=== PATIENT | male | born 1945 | race Caucasian/White ===

== ENCOUNTER 2017-01-28 15:11 | Inpatient (IN) | payer MEDICARE ==
[~2017-01-28] VITALS: Ht 186.7 cm; Wt 101.4 kg
[2017-01-28] VITALS (7 sets, daily range): BP systolic 103–153; BP diastolic 45–102; PULSE 70–125; RESP 16–21; O2SAT 95–100
[~2017-01-28 15:11] MED LIST: ASPI325T32 PO; FISH1CAP3 PO; INSU100I13 SUBQ; LISI2.5T PO; METF1000 PO; SIMV5TAB7 PO
--- NOTE | 2017-01-28 15:45 | ED.REPORT ---
HPI-General Illness Date of Service Jan 28, 2017 ED Provider: Steven Pham MD The pt is a 72 y/o male with a hx of HTN and type II DM who presents to the ED complaining of worsening swelling at the bottom of his right foot post an abscess drainage at [facility] urgent care 2 days ago. 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 Associated sx include right foot erythema and mild chills. He reports 5/10 non-radiating sharp pain in his right foot only when he walks. He denies change in sensation in the right foot, fever , chest pain, palpitations, nausea, abdominal pain, constipation, hematuria, and hematochezia. Nursing Notes Stated Complaint: RT FOOT PAIN POST SURGERY Chief Complaint: Extremity Trauma Nursing Notes Reviewed: Yes Allergies: Coded Allergies: No Known Allergies (Unverified , 01/28/17) Scheduled Aspirin (Aspirin) 325 Mg Tablet.dr 325 MG PO DAILY Fish Oil/Vit E/Fat No.5/Hc137 (Flax, Fish & Borage Oil Sofgel) 1 Each Capsule 1 EACH PO DAILY Insulin Glargine (Lantus U100 Solostar Insulin Pen) 100 Unit/1 Ml Insuln.pen 15 UNIT SUBQ QPM-INSULIN Lisinopril (Lisinopril) 2.5 Mg Tablet 2.5 MG PO DAILY Metformin (Glucophage) 1,000 Mg Tablet 1,000 MG PO BIDWM Simvastatin (Simvastatin) 5 Mg Tablet 5 MG PO HS General Time Seen by MD: 15:36 Chief Complaint Other (right foot swelling) Hx Obtained From: Patient Arrived By: Walk-in Sudden in Onset?: Yes Onset Occurred: 2 days ago Symptom Duration: Since onset Location: : Foot right Quality: Painful Radiation: : Does not radiate Severity: Current: No pain currently Severity: Maximum: Pain level 5 out of 10 Recent Healthcare: Recent doctor visit Similar Sx Previous: No Past Medical History Past Medical History Type II DM HTN Past Surgical History Hernia repair Left ring finger and 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 Smoking History Never Smoker Social History Alcohol Use: Denies alcohol use Drug Use: Denies drug use Ambulatory Status Independent Review of Systems Reports: right foot erythema Denies: change in sensation in the right foot Full Review of Systems Constitutional: Reports: Chills (mild), Denies: Fever Cardiovascular: Denies: Chest pain GI: Denies: Abdominal pain, Constipation, Hematochezia, Nausea, Vomiting Male: Denies Hematuria Musculoskeletal: Reports: Extremity pain (right foot pain), Extremity swelling (right foot) Complete sys rev & neg: except as marked. Physical Exam Nursing note and vitals reviewed. Constitutional: Well-developed, well-nourished. Not diaphoretic. Head: Normocephalic and atraumatic. Mouth/Throat: Oropharynx is clear and moist. No oropharyngeal exudate. Eyes: EOM are normal. Pupils are equal, round, and reactive to light. Neck: Supple, no tracheal deviation. Cardiovascular: Tachycardic, irregular rhythm. Equal and intact distal pulses throughout. Pulmonary/Chest: Effort normal and breath sounds normal. No respiratory distress. Abdominal: Soft. No distension. There is no tenderness, rebound, or guarding. Bowel sounds present. Musculoskeletal: Range of motion grossly intact, moving all extremities. Neurological: AOx3. Grossly nonfocal exam. Strength and sensation intact and equal to bilateral upper and lower extremities. Skin: Warm and dry, no rashes or pallor appreciated. Psychiatric: Appropriate mood and affect. Behavior appears normal. Lower extremities:5mm healing, minimally tender lesion in the middle and bottom of the right foot, with surrounding erythema going up to his toes and spreading medially up to his ankles. He has left 4th toe amputation. Upper extremities: Left ring finger amputation Vital Signs Vital Signs Date Time Temp Pulse Resp B/P Pulse Ox O2 Delivery O2 Flow Rate FiO2 01/28/17 18:29 70 18 131/74 99 Room Air 01/28/17 17:53 117 16 149/102 97 Room Air 01/28/17 15:14 36.7 125 16 153/80 98 Room Air Initial VS: Reviewed Interpretation & Diagnostics Lab Results Interpretation Result Diagram: 01/28/17 1600 01/28/17 1600 Test 01/28/17 15:30 01/28/17 16:00 Hold Purple Top Tube Received (Received) Hold Blue Top Tube Received (Received) Hold Benkelman Top Tube Received (Received) Hold Rodgers Top Tube Received (Received) White Blood Count 11.4th/mm3 (3.8-10.1) Red Blood Count 5.22mil/mm3 (4.40-5.80) Hemoglobin 16.2g/dL (13.8-17.2) Hematocrit 46.3% (41.0-50.0) Mean Corpuscular Volume 88.7fL (81-100) Mean Corpuscular Hemoglobin 31.0pg (27.0-35.0) Mean Corpuscular Hemoglobin Concent 35.0% (32.0-37.0) Red Cell Distribution Width 12.3% (12.3-15.4) Platelet Count 162bil/L (150-400) Neutrophils (%) (Auto) 77.4% (40-74) Lymphocytes (%) (Auto) 11.2% (14-46) Monocytes (%) (Auto) 7.8% (4-12) Eosinophils (%) (Auto) 2.8% (0-5) Basophils (%) (Auto) 0.4% (0-3) Erythrocyte Sedimentation Rate 20mm/hr (0-30) Sodium Level 133mEq/L (134-144) Potassium Level 4.3mEq/L (3.5-5.2) Chloride Level 95mEq/L (97-108) Carbon Dioxide Level 21mmol/L (18-29) Blood Urea Nitrogen 18mg/dL (8-27) Creatinine 0.72mg/dL (0.76-1.27) Estimat Glomerular Filtration Rate 114mL/min (>59) Glucose Level 252mg/dL (60-99) Lactic Acid Level 2.2mmol/L (0.4-2.0) Calcium Level 9.2mg/dL (8.5-10.1) Total Bilirubin 1.0mg/dL (0.0-1.2) Aspartate Amino Transf (AST/SGOT) 16U/L (0-50) Alanine Aminotransferase (ALT/SGPT) 11U/L (0-44) Alkaline Phosphatase 96U/L (25-160) Troponin T < 0.010ug/L (0.0-0.011) C-Reactive Protein 2.9mg/dL (0.0-0.5) Total Protein 7.5g/dL (6.4-8.4) Albumin 4.0g/dL (3.4-5.0) Triglycerides Level 192mg/dL (0-149) Cholesterol Level 173mg/dL (100-199) LDL Cholesterol, Calculated 99.600mg/dL (0-99) VLDL Cholesterol 38.400mg/dL HDL Cholesterol 35mg/dL (>39) Cholesterol/HDL Ratio 4.94 (0.0-4.4) Procalcitonin 0.04ng/mL (0.00-0.08) ECG Interpretation ECG Interpretation: A-fib. Rate 132. Left anterior fascicular block. Age indeterminate anteroseptal infarct. Time: 15:36 Interpreted by: ED physician X-Ray Chest Interpretation Chest Xray Interpretation: IMPRESSION: Minimal subsegmental atelectasis at the left base. Otherwise no abnormality is seen in the semiupright portable chest Dictated by: Casimiro Horne M.D. on 01/28/2017 at 18:37 Approved by: Casimiro Horne M.D. on 01/28/2017 at 18:38 View: Portable, 1 view Interpretation / Wet Read by: Interpret - Radiologist Re-Eval/Medical Decision Med Decision/Clinical Course In summary, 72-year-old male presenting to the ED for evaluation after he noticed worsening redness and pain to his foot after an I&D several days ago. The swelling appears to be getting worse and the patient does have some chills, however afebrile. He states that he was told that there was some concern for MRSA; he was started on vancomycin here in the emergency department. White blood cell count of 11.4 with 77.4% neutrophils. Lactic acid of 2.2. Glucose 252. Troponin negative. Of note, upon arrival, patient noted to be in atrial fibrillation with rapid ventricular rate. He is not endorsing any palpitations or chest pain. He denies having a history of this in the past. Unclear when this may have started. Chest x-ray negative for any acute abnormalities that would account for his symptoms. Blood cultures drawn the emergency department prior to antibiotic administration. Troponin negative. Initially given several doses of metoprolol IV with improvement, however would then return to A. fib with RVR. Started on a diltiazem drip here in the emergency department. Plan admission for further management and evaluation. Patient agreeable with plan as stated, no further questions. Source of Hx: Old records Time of Eval: 17:39 Re-Evaluation/Progress Note: Discussed diagnosis, ECG, lab results and plan to admit. The pt understands and agrees with the plan. All questions answered. Consultation : Referral / Consult Name: Dahlia Peraza Consulted With: Hospitalist Call Returned at: 19:14 Public Health Director: Will see patient, Agrees with eval, Agrees with plan, Accepts admit Counseled Regarding: Diagnosis, Lab results, Need for admission Discharge & Departure Primary Impression: Atrial fibrillation with RVR Additional Impression: Cellulitis Site of cellulitis: extremity Site of cellulitis of extremity: lower extremity Laterality: unspecified laterality Qualified Code: L03.119 - Cellulitis of unspecified part of limb Disposition: Home Discharge Condition All VS Reviewed: Yes Referrals: Rajiv Law MD (PCP) Crit Care Except Billable Proc Time Spent: 30-74 minutes Services Performed: Patient management by me, Time spent at bedside, Reviewing test results, Reviewing imaging, Discussing patient care, Documentation in record Critical Care Notes: Please see MDM. Sanaibe Attestation Portions of this note were transcribed by Abraham Ellsworth. I,, personally performed the history, physical exam and medical decision-making;I reviewed and confirmed the accuracy of the information in the transcribed note. Signed by Tameka Roberts. 01/28/17 copies to: Rajiv Law MD, William B MD Jan 28, 2017 15:45 Abraham Ellsworth Jan 28, 2017 15:49
[2017-01-28 16:19] LABS: BASOPHILS % (AUTO) 0.4 % (0-3); EOSINOPHILS % (AUTO) 2.8 % (0-5); MONOCYTES % (AUTO) 7.8 % (4-12); Mean Corpuscular Volume 88.7 fL (81-100); NEUTROPHILS % (AUTO) 77.4 % (40-74); Platelet Count 162 bil/L (150-400)
[2017-01-28] MEDS ORDERED: 0.9% Sodium Chloride 1,000 ML IV ONE (17:42)
[2017-01-28] MEDS ORDERED: MeTOProlol 1 mg/mL 5 mL Inj IVPUSH ONE (17:45)
--- NOTE | 2017-01-28 18:40 | DRSVH ---
PROCEDURE: X-RAY CHEST ONE VIEW ([id number]) INDICATIONS: tachycardic TECHNIQUE: One view of the chest was acquired. COMPARISON: [facility], CR, CHEST 2VW, 05/29/2009, 10:11. FINDINGS: Surgical changes and devices: cake tester leads are seen over the chest. Lungs and pleura: No pleural effusions or pneumothorax. Lungs are clear other than some minimal sub segmental atelectasis at the left base. Mediastinum: Mediastinal contours appear normal. Heart size is normal. Bones and chest wall: No suspicious bony lesions. Overlying soft tissues appear unremarkable. IMPRESSION: Minimal subsegmental atelectasis at the left base. Otherwise no abnormality is seen in th e semiupright portable chest Dictated by: Casimiro Horne M.D. on 01/28/2017 at 18:37 Approved by: Casimiro Horne M.D. on 01/28/2017 at 18:38
[2017-01-28] MEDS ORDERED: Vancomycin Dose per Pharmacist XX SCH (18:45)
[2017-01-28] MEDS ORDERED: Diltiazem HCl 125 MG in 0.9% Sodium Chloride 100 ML, Pharmacy To Mix 1 EA IV SCH (18:45)
[2017-01-28] MEDS ORDERED: Vancomycin Inj 2,000 MG in 0.9% Sodium Chloride 500 ML IV ONE (18:55)
[2017-01-28] MEDS ORDERED: Polyethylene Glycol (PEG) 17 Gm Powder PO PRN (19:55)
[2017-01-28] MEDS ORDERED: Ondansetron 2 mg/mL 2 mL Inj IVPUSH PRN (19:55)
[2017-01-28] MEDS ORDERED: Alum-Mag Hydrox-Simeth 30 mL Suspension PO PRN (19:55)
--- NOTE | 2017-01-28 21:41 | PCM.HPMED ---
Subjective Date of Service Jan 28, 2017 Primary Provider: Admitting Physician: Dahlia Peraza DO Primary Care Physician: Rajiv Law MD Attending Physician: Dahlia Peraza DO Chief Complaint: right foot swelling History of Present Illness: Mr. Ramses Guzman is a very pleasant 72 year old gentleman with past medical history of hypertension, poorly controlled insulin using diabetes, who presents to ED complaining of worsening swelling at the bottom of his right foot post an abscess drainage at [facility] urgent care on Sunday. Culture was taken and placed on Keflex since then. He first noticed the surrounding redness on the medial aspect of his foot and upon closer examination then noticed the blister. He states that it started like a pimple with a white head and a black center and a 7cm surrounding area of erythema. He states that it is only painful directly over the incision. He reports 5/10 non-radiating sharp pain in his right foot only when he walks. In the ED the patient was noted to be in afib w RvR. He denies headache, nausea, vomiting, syncope, fever, chills, diaphoresis, chest pain, palpitations, abdominal pain, constipation, diarrhea, hematuria, and hematochezia. Of note: Patient drinks 6 cups of coffee daily. Review of Systems: A comprehensive review of systems was conducted with the patient and found to be negative except as above in the History of Present Illness. Allergies Coded Allergies: No Known Allergies (Unverified , 01/28/17) Home Medications Aspirin (Aspirin) 325 Mg Tablet.dr 325 MG PO DAILY Fish Oil/Vit E/Fat No.5/Hc137 (Flax, Fish & Borage Oil Sofgel) 1 Each Capsule 1 EACH PO DAILY Insulin Glargine (Lantus U100 Solostar Insulin Pen) 100 Unit/1 Ml Insuln.pen 15 UNIT SUBQ QPM-INSULIN Lisinopril (Lisinopril) 2.5 Mg Tablet 2.5 MG PO DAILY Metformin (Glucophage) 1,000 Mg Tablet 1,000 MG PO BIDWM Simvastatin (Simvastatin) 5 Mg Tablet 5 MG PO HS PMH Type II DM HTN Surgical History Hernia repair Left ring finger and 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 Social History Hx Alcohol Use: No Smoking Status: Never Smoker Exam Vital Signs Vital Sign - Last Date Time Temp Pulse Resp B/P Pulse Ox O2 Delivery O2 Flow Rate FiO2 01/28/17 19:45 96 20 103/57 95 Room Air 01/28/17 15:14 36.7 Exam General: No acute distress, well-developed, well-nourished, appropriately interactive HEENT: Normocephalic, atraumatic. External ears without defect. Pupils equal, round, and reactive to light and accommodation. Anicteric sclerae, moist conjunctivae, and no lid lag. Oropharynx free of erythema and cobble stoning with moist mucosa. Neck: Supple with full range of motion. No jugular venous distension. No bruits. No lymphadenopathy or thyromegaly. Cardiovascular: Regular rate and rhythm with no murmurs, rubs, or gallops appreciated Pulmonary: Clear to auscultation bilaterally with no crackles, wheezes, or rhonchi. Normal respiratory effort with no use of accessory muscles. Abdomen: Bowel tones present. Soft, nontender, nondistended. No hepatosplenomegaly or masses appreciated. Extremities: No clubbing, cyanosis, edema, or lymphadenopathy appreciated. pulses palpable but soft bilaterally. Lower extremities:5mm healing, minimally tender lesion in the middle and bottom of the right foot, with surrounding erythema going up to his toes and spreading medially up to his ankles. He has left 4th toe amputation. Upper extremities: Left ring finger amputation Skin: Normal temperature, turgor, and texture; no rash, ulcers, or subcutaneous nodules appreciated. Neurological: Cranial nerves grossly intact. Normal muscle strength, tone, and bulk. Reflexes, coordination, and sensory function within normal limits. No known gait impairment. Psychiatric: Normal mood and affect. Alert and oriented to person, place, and time. Lymph: no cervical or supraclavicular lymphadenopathy MSK: as above regarding lower extremities otherwise no joint erythema / edema Lab and Diagnostics Result Diagram: 01/28/17 1600 01/28/17 1600 Assessment & Plan Mr. Ramses Guzman is a very pleasant 72 year old gentleman with past medical history of hypertension, poorly controlled insulin using diabetes, and new onset Afib w/ RvR who is currently being treated for MSSA diabetic foot infection. MSSA diabetic foot infection, present on admission. Active. - MSSA cx positive in outpatient records. - Vancomycin received in the ED and D/C'd on floor. - Nafcillin started. - Blood cx pending. - Procalcitonin/esr/crp pending. - Day team to contact Dr. Lazcano with podiatry. - May consider MRI tomorrow. Afib with RvR, present on admission. Resolved. - Afib converted to sinus shortly arriving to the floor. - New diagnosis. Patient drinks 6 cups of coffee daily. - Diltiazem ggt. - Tele on. - [id number] score of 4,= moderate risk. Continue patients ASA. - Day team to determine best choice of oral medication for anticoagulation. Insulin using diabetes, present on admission. Active. - Continue home regimen. Patient has Lantus on med rec, but he says he uses something else... - Holding home oral medications - Metformin 1G BIDWM. - A1c pending. - SSI, medium correctional Hypertension, - Continue home lisinopril 2.5 daily. Hyperlipidemia - Continue home simvastatin 5mg daily. - Lipid panel pending. Acetaminophen for mild pain when necessary. Bowel regimen Senna and MiraLAX scheduled and PRN. Zofran when necessary for nausea and vomiting. SubQ heparin for now. SCDs in place. High-risk medications: IV Vancomycin. Only one dose given in ED Drips: Diltiazem ggt. Patient Status: Patient is admitted under inpatient status with expected length of stay greater than 2 midnights due to severity of presenting symptoms, risk of adverse event, and complexity of treatment plan. Pain Evaluation: Adequate Pain Control Resuscitation Status: CPR: Attempt Resuscitation Attending Statement The patient was seen and examined together with house staff on 01/28/2017 and I agree with the history, exam and plan as outlined in the note above. YOANDY RAMIRES DO Jan 28, 2017 19:49 Dahlia Peraza DO Jan 28, 2017 23:47
[2017-01-28] MEDS ORDERED: Glucose 40% Oral Gel 15 Gm Tube PO PRN (23:55)
[2017-01-29] VITALS (8 sets, daily range): BP systolic 116–178; BP diastolic 59–74; PULSE 69–87; RESP 14–22; O2SAT 94–97
[2017-01-29] MEDS: Heparin 5,000 Unit/mL Inj SUBQ SCH ×3 (00:30→16:02)
[2017-01-29] MEDS: Insulin GLARgine 100 Unit/mL Syringe SUBQ SCH ×2 (01:39→21:52)
[2017-01-29] MEDS: Nafcillin Inj 2,000 MG in Dextrose 5% Minibag Plus 100 ML IV SCH ×4 (02:42→21:39)
--- NOTE | 2017-01-29 04:54 | NUR ---
NEW ADMIT Pt to the floor around 2024. Pt indep. in room, dilt gtt @ 5 ml/hr, A-fib converted to SR 70's shortly after arriving. Pt jumped back into A-fib around 229 then back into SR around 334. Pt slept well, VSS, no other complaints at this time.
[2017-01-29] MEDS: Insulin LISPRO 300 Unit/3 mL Inj SUBQ SCH ×4 (08:31→22:00)
--- NOTE | 2017-01-29 11:53 | NUR ---
Social Work: Initial Assessment/Multidisciplinary Rounds D: Per EMR review, pt is a 72 year old male admitted for AFIB with RVR. Pt is [facility] with Medicare; pt has no LTC or VA benefits. PCP is Rajiv Law MD. NOK Is Leonie Rosado, , . Advanced directives completed- FUNERAL ARRANGER requested copy for chart. RA score not entered at this time. Pt discussed in am rounds. Pt capacity for self-care and d/c needs discussed. No concerns or needs identified at this time. Pt is I with self care and ambulating. FUNERAL ARRANGER met with the patient at bedside. Sw role explained, contact info and d/c planning checklist provided. Pt lives in [place] with his in a two story home with 1 step to enter. Pt uses no DME, continues to drive and engage in recreational activities (fishing) and is I with all his own self care. Pt has never required home health or prison/rehab. Pt anticipates discharge home once medically stable; pt's is out of town. Pt's sister and [id number] will transport. A: Pt who is I at baseline. P: Anticipate discharge home via POV once medically stable; FUNERAL ARRANGER to continue to follow to assess for d/c needs. KENNY Phelan Addendum: 01/29/17 at 1157 by OSCAR BOLIVAR Amended: Links added.
[2017-01-29 12:14] LABS: BASOPHILS % (AUTO) 0.2 % (0-3); EOSINOPHILS % (AUTO) 3.7 % (0-5); MONOCYTES % (AUTO) 8.2 % (4-12); Mean Corpuscular Hemoglobin 31.2 pg (27.0-35.0); NEUTROPHILS % (AUTO) 73.6 % (40-74); Platelet Count 148 bil/L (150-400)
[2017-01-29] MEDS ORDERED: Ketorolac 15 mg/mL Inj IVPUSH ONE (13:55)
--- NOTE | 2017-01-29 15:48 | DRSVH ---
[facility] [address] [place] [address] Echocardiogram Report Name: UMAIR GARNETT EStudy Date: 01/29/2017 Height: 74 in Hospital Exam Location: [facility] Weight: 220 lb Gender: Male BSA: 2.3 m2 : 1945 Age: 72 yrs BP: 116/59 mmHg Reason For Study: Atrial fibrillation Ordering Physician: Performed By: Michelle Nick Referring Physician: Melissa Law Interpretation Summary 1) Normal left ventricular thickness, size, and systolic function (EF 60- 65%). 2) No obvious focal wall motion abnormalities noted but poor endocardial definition reduces the sensitivity for the detection of such. 3) Normal right ventricular size and function. 4) Age related sclerocalcification of the aortic and mitral valve but no significant stenosis or regurgitation present. 5) No prior Echo available for comparison. Procedure: A two-dimensional transthoracic echocardiogram with color flow and Doppler was performed. The study quality was technically adequate. There is no prior echocardiogram noted for this patient. The patient was in sinus rhythm during the exam. Left Ventricle: The left ventricle is normal in size. There is normal left ventricular wall thickness. The ejection fraction is estimated to be 60-65%. Left ventricular systolic function is normal. There are no obvious focal wall motion abnormalities noted but poor endocardial definition reduces the sensitivity for the detection of such. Assessment of diastolic parameters indicates a relaxation abnormality of the left ventricle, consistent with normal filling pressures. Right Ventricle: The right ventricle is normal in size and function. Atria: The left atrium is moderately dilated. Right atrial size is normal. The interatrial septum is intact with no evidence for an atrial septal defect. Mitral Valve: The mitral valve leaflets appear mildly thickened, but open well. The mitral valve leaflets are mildly calcified. There is trace mitral regurgitation. Aortic Valve: The aortic valve opens well. There is mild aortic valve sclerosis. The aortic valve is trileaflet. There is no aortic valve stenosis. No aortic regurgitation is present. Tricuspid Valve: The tricuspid valve is normal in structure and function. No tricuspid regurgitation. Pulmonic Valve: The pulmonic valve is normal in structure and function. There is no pulmonic valvular regurgitation. Great Vessels: The aortic root is normal size. The dimensions of the ascending aorta are normal. The IVC is of normal diameter and collapses greater than 50% with a sniff. This suggests a low right atrial pressure of 3 mm Hg. Pericardium/ Pleura There is no pericardial effusion. There is no pleural effusion. MMode/2D Measurements & Calculations LVIDd: 5.3 cm LA dimension: 4.6 cm RA long axis Ao root diam LVIDs: 3.2 cm FS: 38.7 % LA A2 area: 27.5 cm RA area Aortic Jxn: 2.9 cm IVSd: 0.94 cm LA A4 area: 30.4 cm asc Aorta Diam LVPWd: 0.86 cm LA length (vol) : 19.2 cm RA vol Ao Arch Diam (Prox LA vol: 105.7 ml : 61.7 ml Trans): 3.3 cm LA vol index RA : 27.3 mm/ RVDd major IVC diam: 2.1 cm : 5.2 cm LV ren. diameter/BSA LV sys. diameter/BSA RVD1 (basal) RVD2 (mid): 3.3 cm (cm/m^2): 2.3 (cm/m^2): 1.4 Doppler Measurements & Calculations LVOT Max Neno MV E max neno MV E/A: 1.1 PA V2 max : 136.9 cm/sec : 74.4 cm/sec Med Peak E' Neno : 101.5 cm/sec MV A max neno PA mean PG : 68.2 cm/sec E/E' med: 11.0 MV P1/2t: 71.0 msec Lat Peak E' Neno PA Accel Time : 0.14 sec E/E' lat: 8.5 E/e' average: 9.8 MV A dur: 0.11 sec MV dec time MV P1/2t max neno LV V1 max PG PA V2 mean : 0.24 sec : 66.7 cm/sec MVA(P1/2t): 3.1 cm2 LV V1 VTI: 28.5 cm Reading Physician:03:47 PM
--- NOTE | 2017-01-29 16:15 | PCM.PNMED ---
Subjective Date of Service Jan 29, 2017 Subjective Overnight the patient is doing well. He remains afebrile but continues to have minor pain in his foot. Dr. Lazcano to assess today. Exam Vital Signs Vital Sign - Last Date Time Temp Pulse Resp B/P Pulse Ox O2 Delivery O2 Flow Rate FiO2 01/29/17 12:13 36.1 71 16 140/71 95 Room Air Intake and Output 01/28/17 01/28/17 01/29/17 Cumulative From/Thru 15:00 23:00 07:00 01/28/17 15:14 - 01/29/17 05:44 Intake Total 1000 ml 420 ml 1420 ml Balance 1000 ml 420 ml 1420 ml IV Total 1000 ml 420 ml 1420 ml Exam General: Pleasant appearing age-appropriate male in no acute distress HEENT: PERRLA, EOMI, nonicteric, membranes moist Lymph: No lymphadenopathy Cardio: Irregular without murmur Respiratory: CTA bilaterally, no wheezes, no crackles Abdomen: Soft, positive bowel sounds, nontender, nondistended Extremities: No edema, 5/5 strength, sensation intact; patient has a noticeable deep red cellulitis on the plantar surface of his foot with expansion toward the medial malleolus Psych: Appropriate mood and affect Neuro: CN II through XII grossly intact, sensation intact throughout Skin: No rash IVs and Medications Medications Reviewed: Medications were reviewed in detail Lab and Diagnostics Result Diagram: 01/29/17 1200 01/29/17 1200 X-Rays, CTs and MRIs Chest x-ray Minimal subsegmental atelectasis at the left base. Otherwise no abnormality is seen in the semiupright portable chest Dictated by: Casimiro Horne M.D. on 01/28/2017 at 18:37 Assessment & Plan Mr. Ramses Guzman is a very pleasant 72 year old gentleman with past medical history of hypertension, poorly controlled insulin using diabetes, and new onset Afib w/ RvR who is currently being treated for MSSA diabetic foot infection. MSSA diabetic foot infection, present on admission. Active. - MSSA cx positive in outpatient records. - Vancomycin received in the ED and D/C'd on floor. - Continue nafcillin day 2 - Blood cx pending; day 2 - Procalcitonin negative, C-reactive protein 2.9 - Dr. Lazcano evaluated and reevaluate this evening - Patient reports Dr. Lazcano feels this needs a deeper debridement - MRI ordered Afib with RvR, present on admission. Resolved. - Afib converted to sinus shortly arriving to the floor. - New diagnosis. Patient drinks 6 cups of coffee daily. - Diltiazem ggt converted to 180mg PO daily - Tele on. - [id number] score of 4 - Anticoag with Eliquis - Day team to determine best choice of oral medication for anticoagulation. Insulin using diabetes, present on admission. Active. - Continue home regimen. Patient has Lantus on med rec, but he says he uses something else... - Holding home oral medications - Metformin 1G BIDWM. - A1c pending. - Lantus 15 units at bedtime - Medium correctional Hypertension, - Continue home lisinopril 2.5 daily. Hyperlipidemia - Continue home simvastatin 5mg daily. Disposition: Patient likely to be discharged tomorrow pending the results of the MRI and the ongoing debridement. Pain Evaluation: Adequate Pain Control VTE Prophylaxis: Sub-Q Heparin (Unfractionated) Resuscitation Status: CPR: Attempt Resuscitation Attending Statement The patient was seen and examined together with Dr. Dr. Greenberg on January 29 and I agree with the history, exam findings, and plan as outlined in the note above. I did participate in all aspects of the services provided today, including documentation and the plan of care. We will continue IV antibiotics and debridement for another day. Emanuel Greenberg DO Jan 29, 2017 16:15 Lamberto Contreras MD Jan 30, 2017 14:17
[2017-01-29] MEDS: Diltiazem CD 180 mg ER24 Capsule PO SCH (17:52)
--- NOTE | 2017-01-29 18:01 | PCM.CHPPOD ---
Subjective Date of service Jan 29, 2017 History of Present Illness 72 year old male evaluated resting comfortably in Bed in no Acute distress. Patient states that he noticed some redness on his plantar foot this past Sunday. He contacted the office and was directed toward the Urgent care center. He was evaluated at urgent care and placed on oral antibiotic therapy. Patient states that the erythema conintued to spreda so he was directed to the ER yesterday and was admitted to [facility]. Upon admission he was given a dose of IV vancomycin. patient denies any recent fever, chills, nausea or vomiting. Allergy Allergies: Coded Allergies: No Known Allergies (Unverified , 01/28/17) Medications Aspirin (Aspirin) 325 Mg Tablet.dr 325 MG PO DAILY Fish Oil/Vit E/Fat No.5/Hc137 (Flax, Fish & Borage Oil Sofgel) 1 Each Capsule 1 EACH PO DAILY Insulin Glargine (Lantus U100 Solostar Insulin Pen) 100 Unit/1 Ml Insuln.pen 15 UNIT SUBQ QPM-INSULIN Lisinopril (Lisinopril) 2.5 Mg Tablet 2.5 MG PO DAILY Metformin (Glucophage) 1,000 Mg Tablet 1,000 MG PO BIDWM Simvastatin (Simvastatin) 5 Mg Tablet 5 MG PO HS Past Medical History Surgeries: Yes (HERNIA REPAIR) Medical History: Surgical History: Social History Hx Alcohol Use: No Hx Substance Use: No Smoking Status: Never Smoker Podiatry Consult Exam Vital Signs Vital Sign - Last Date Time Temp Pulse Resp B/P Pulse Ox O2 Delivery O2 Flow Rate FiO2 01/29/17 16:28 37.1 75 22 151/69 95 Room Air Intake and Output 01/28/17 01/28/17 01/29/17 Cumulative From/Thru 15:00 23:00 07:00 01/28/17 15:14 - 01/29/17 05:44 Intake Total 1000 ml 420 ml 1420 ml Balance 1000 ml 420 ml 1420 ml IV Total 1000 ml 420 ml 1420 ml Result Diagram: 01/29/17 1200 01/29/17 1200 Lab Test 01/28/17 15:30 01/28/17 16:00 01/28/17 21:05 01/28/17 21:08 Hold Purple Top Tube Received (Received) Hold Blue Top Tube Received (Received) Hold [place] Top Tube Received (Received) Hold Rodgers Top Tube Received (Received) Erythrocyte Sedimentation Rate 20mm/hr (0-30) Troponin T < 0.010ug/L (0.0-0.011) C-Reactive Protein 2.9mg/dL (0.0-0.5) Triglycerides Level 192mg/dL (0-149) Cholesterol Level 173mg/dL (100-199) LDL Cholesterol, Calculated 99.600mg/dL (0-99) VLDL Cholesterol 38.400mg/dL HDL Cholesterol 35mg/dL (>39) Cholesterol/HDL Ratio 4.94 (0.0-4.4) Procalcitonin 0.04ng/mL (0.00-0.08) Hold Urine Received (Received) Test 01/29/17 12:00 White Blood Count 8.1th/mm3 (3.8-10.1) Red Blood Count 4.62mil/mm3 (4.40-5.80) Hemoglobin 14.4g/dL (13.8-17.2) Hematocrit 41.6% (41.0-50.0) Mean Corpuscular Volume 90.0fL (81-100) Mean Corpuscular Hemoglobin 31.2pg (27.0-35.0) Mean Corpuscular Hemoglobin Concent 34.6% (32.0-37.0) Red Cell Distribution Width 12.5% (12.3-15.4) Platelet Count 148bil/L (150-400) Neutrophils (%) (Auto) 73.6% (40-74) Lymphocytes (%) (Auto) 13.9% (14-46) Monocytes (%) (Auto) 8.2% (4-12) Eosinophils (%) (Auto) 3.7% (0-5) Basophils (%) (Auto) 0.2% (0-3) Sodium Level 140mEq/L (134-144) Potassium Level 4.1mEq/L (3.5-5.2) Chloride Level 101mEq/L (97-108) Carbon Dioxide Level 24mmol/L (18-29) Blood Urea Nitrogen 11mg/dL (8-27) Creatinine 0.64mg/dL (0.76-1.27) Estimat Glomerular Filtration Rate 130mL/min (>59) Glucose Level 158mg/dL (60-99) Lactic Acid Level 1.2mmol/L (0.4-2.0) Calcium Level 8.7mg/dL (8.5-10.1) Total Bilirubin 1.1mg/dL (0.0-1.2) Aspartate Amino Transf (AST/SGOT) 10U/L (0-50) Alanine Aminotransferase (ALT/SGPT) 10U/L (0-44) Alkaline Phosphatase 76U/L (25-160) Total Protein 6.3g/dL (6.4-8.4) Albumin 3.8g/dL (3.4-5.0) Exam General: Alert, Oriented X3, Cooperative, No Acute Distress Lower Extremities: Right: Edema localized Extremity warm Lower Extremity Pulses: Palpable: Right Dorsalis Pedis Right Posterior Tibal Podiatry WOUND : Wound Location/Description right plantar foot wound with erythema extending dorsally within the medial longitudinal arch. mild underlying fluctuance with minimal purulent drainage. mild mal odor. wound measures .4cm x .2cm x .2cm severe tenderness to palpation Assessment & Plan Assessment abscess and cellulitis of DM foot ulceration Problems: Plan wound prepped with betadine and bedside incision and drainage performed today following verbal consent from patient. local block preformed with 3ml of 1% lidocaine with epi a number 11 blade was used to make a 3cm incision extending from the original wound. a scissor was introduced and use to access to underlying abscess with 3ml of purulent discharge noted. wound probed until all purulence had been expressed. flushed with saline, wound packed with betadine soaked gauze and dressed with dry sterile 4x4 gauze and kerlix. continue IV antibiotic therapy, wound cultures sent today. will follow wound cultures and narrow antibiotic therapy appropriately. no suspected bone involvement. non weight bearing right foot. podiatry will follow daily. VTE Prophylaxis: Sub-Q Heparin (Unfractionated) Leon Lazcano DPM Jan 29, 2017 18:01
--- NOTE | 2017-01-29 18:50 | NUR ---
Bedrest/Discontinue diltiazem drip Pt. has been bedrest throughout shift due to sore on bottom of right foot, Pt. has been encouraged to use call light for assistance if he wants to get up and out of bed. Technical Training Specialist came twice on shift and drained Pts. right bottom ulcer foot. Pts. diltiazem drip was DC'D at about 1700 and PO diltiazem medication was given at about the same time, tolerating well still SR at this time. Pt. has no c/o pain, CP, or SOB at this time.
[2017-01-30] VITALS (9 sets, daily range): BP systolic 107–142; BP diastolic 54–71; PULSE 73–104; RESP 15–23; O2SAT 94–98
[2017-01-30] MEDS: Nafcillin Inj 2,000 MG in Dextrose 5% Minibag Plus 100 ML IV SCH ×4 (02:54→20:09)
[2017-01-30 04:02] LABS: BASOPHILS % (AUTO) 0.2 % (0-3); EOSINOPHILS % (AUTO) 2.7 % (0-5); MONOCYTES % (AUTO) 10.6 % (4-12); Mean Corpuscular Hemoglobin 30.8 pg (27.0-35.0); NEUTROPHILS % (AUTO) 71.9 % (40-74); Platelet Count 144 bil/L (150-400)
--- NOTE | 2017-01-30 06:30 | NUR ---
NOC Pt went for MRI of his foot. Dressing intact to R foot. PT having a lot of pain that he rates at a 10. PT given morphine twice with excellent relief, but pt does not want to keep taking that. WIll defer to day RN to transition to po. PT slightly febrile at 100. Tylenol given and pt afebrile at this time. B/P hypertensive, especially when he is in a lot of pain. IV patent in L f/a. Son was visiting from [place]. Pt voiding per urinal as pain is severe when in dependent position. PT has been in sinus rhythm all night. RA. Assessment benign except for foot. WIll CTM. Continue with IV abx at this time.
--- NOTE | 2017-01-30 08:26 | DRSVH ---
PROCEDURE: MRI FOREFOOT RIGHT WITH AND WITHOUT CONTRAST ([id number]) INDICATIONS: 72-year-old male with hypertension, poorly controlled insulin-dependent diabetes, with r ight foot swelling after recent abscess drainage. TECHNIQUE: Noncontrast sagittal T1 spin echo and T2 fast spin echo with fat saturation, long-axis T1 spin echo a nd T2 fast spin echo with fat saturation; short-axis T1 spin echo, proton density fast spin echo, and T2 fast spin echo with fat saturation through the forefoot. Post-contrast short axis, long axis, an d sagittal T1 spin echo with fat saturation through the forefoot. COMPARISON: [facility], CR, TOE(S) MIN 2VW, 03/06/2012, 9:55. FINDINGS: Preliminary interpretation rendered by [facility]. Image quality: There is metallic susceptibility artifact in the plantar soft tissues, obscuring adjac ent soft tissue and bony structures. Bones and joints: No suspicious osseous enhancement. No bone marrow contusions or metatarsal stress fractures. The sesamoid bones appear in expected positions, without internal edema. There is first metatarsophalangeal joint degeneration, with subchondral cyst formation within the first metatarsal h ead. No suspicious intraosseous lesions. Soft tissues: No suspicious soft tissue enhancement. The visualized plantar foot muscles demonstrat e moderate interstitial edema, with concomitant fatty atrophy. Visualized portions of the flexor and extensor tendons appear intact, without tenosynovitis. No rim-enhancing fluid collections to suggest abscess. Sagittal images demonstrate no plantar plate tears. IMPRESSION: 1. No MR findings to suggest osteomyelitis. No soft tissue abscess identified. 2. Metallic susceptibility artifact in the plantar forefoot soft tissues is of uncertain etiology. Re commend correlation with right foot radiographs to evaluate for soft tissue foreign body in the setti ng of recent abscess drainage. 3. Moderate first metatarsophalangeal joint degeneration. 4. Findings consistent with denervation changes of the intrinsic foot muscles, in the setting of know n insulin-dependent diabetes. Dictated by: Chadd Gill M.D. on 01/30/2017 at 8:15 Approved by: Chadd Gill M.D. on 01/30/2017 at 8:25
[2017-01-30] MEDS: Insulin LISPRO 300 Unit/3 mL Inj SUBQ SCH ×4 (09:16→22:00)
[2017-01-30] MEDS: Diltiazem CD 180 mg ER24 Capsule PO SCH (09:17)
[2017-01-30] MEDS: Dabigatran 150 mg Capsule PO SCH ×2 (10:45→20:12)
--- NOTE | 2017-01-30 15:22 | NUR ---
Social Work: Readiness for Discharge/Multidisciplinary Rounds D: Pt discussed in multidisciplinary rounds with attending provider and resident. The patient is not yet medically stable for discharge but is anticipated to be ready for d/c tomorrow. The patient will likely need to follow up with podiatry and/or wound care as an outpatient upon discharge. Per podiatry notes, pt in non-weight bearing on his right foot at this time. CATH LABORATORY TECHNICIAN met with the patient and his spouse at bedside to discuss discharge planning. The patient confirms his non-weightbearing status and that he is having issues even moving to the bedside commode without placing weight on his foot. The patient and his are interested in obtaining a knee-scooter for the patient. CATH LABORATORY TECHNICIAN explained the ways they might obtain this DME including Medicare, Private Pay and Rentals. They do not wish to use the pt's DME benefit at this time and would like quotes from [employer] for purchase and for rent. Per Heat Plant Specialist who spoke with [employer], the rates for the knee scooter are as follows: $120/monthly $40/Weekly (Rental) and $395 (purchase). CATH LABORATORY TECHNICIAN informed the pt's of this who states that she would like to speak with the edi programmer analyst to learn how long the pt will be non-weight bearing. She states that she will pickup the DME from [employer] in [place] and does not need for it to be delivered to [facility]. Other than the need for the DME, she and the patient decline any other needs or concerns for discharge. A: Pt lives at home with his and will be non-weightbearing for an unknown amount of time at discharge. P: Anticipate pt to discharge home via POV with to obtain DME/Knee Scooter prior to discharge. CATH LABORATORY TECHNICIAN to continue to follow to assess for further d/c needs. KENNY Phelan
--- NOTE | 2017-01-30 15:44 | PCM.PNMED ---
Subjective Date of Service Jan 30, 2017 Subjective Wound was debrided by Dr. Lazcano who drained 5 mL of pus. MRI showed no bone involvement. Patient denies fever, chills. Heart rhythm converted to normal sinus again last night. He was scheduled to get Eliquis however this was held due to conflict between diltiazem and Eliquis. Patient denies other review of systems. His is present. Exam Vital Signs Vital Sign - Last Date Time Temp Pulse Resp B/P Pulse Ox O2 Delivery O2 Flow Rate FiO2 01/30/17 12:01 36.7 73 23 142/65 96 Room Air Intake and Output 01/29/17 01/29/17 01/30/17 Cumulative From/Thru 15:00 23:00 07:00 01/28/17 15:14 - 01/30/17 06:14 Intake Total 233 ml 400 ml 2053 ml Output Total 860 ml 750 ml 1610 ml Balance -627 ml -350 ml 443 ml Intake Oral 233 ml 400 ml 633 ml IV Total 1420 ml Output Urine Total 860 ml 750 ml 1610 ml Exam General: Pleasant appearing age-appropriate male in no acute distress HEENT: PERRLA, EOMI, nonicteric, membranes moist Lymph: No lymphadenopathy Cardio: Regular rate and rhythm Respiratory: CTA bilaterally, no wheezes, no crackles Abdomen: Soft, positive bowel sounds, nontender, nondistended Extremities: No edema; sensation intact; right foot is bandaged and is dry Psych: Appropriate mood and affect Neuro: CN II through XII grossly intact, sensation intact throughout Skin: No rash IVs and Medications Medications Reviewed: Medications were reviewed in detail Lab and Diagnostics Result Diagram: 01/30/1734401/30/17 034 X-Rays, CTs and MRIs Chest x-ray Minimal subsegmental atelectasis at the left base. Otherwise no abnormality is seen in the semiupright portable chest Dictated by: Casimiro Horne M.D. on 01/28/2017 at 18:37 Assessment & Plan Mr. Ramses Guzman is a very pleasant 72 year old gentleman with past medical history of hypertension, poorly controlled insulin using diabetes, and new onset Afib w/ RvR who is currently being treated for MSSA diabetic foot infection. MSSA diabetic foot infection, present on admission. Active. - MSSA cx positive in outpatient records. - Vancomycin received in the ED and D/C'd on floor. - Continue nafcillin day 2 - Procalcitonin negative, C-reactive protein 2.9 - Dr. Lazcano evaluated and debrided - MRI negative for osteomyelitis - Procalcitonin tomorrow morning with morning labs - Blood cultures pending and if positive patient for GPC will need SALEEM; currently no growth Afib with RvR, present on admission. Resolved. - Afib converted to sinus shortly arriving to the floor. - New diagnosis. Patient drinks 6 cups of coffee daily. - Diltiazem ggt converted to 180mg PO daily - Tele on. - [id number] score of 4 - Anticoag with Pradaxa; start tonight Insulin using diabetes, present on admission. Active. - Continue home regimen. Patient has Lantus on med rec, but he says he uses something else... - Holding home oral medications - Metformin 1G BIDWM. - A1c 9.5 - Lantus 15 units at bedtime - Medium correctional Hypertension, - Continue home lisinopril 2.5 daily. Hyperlipidemia - Continue home simvastatin 5mg daily. Disposition: Patient likely to be discharged tomorrow pending Dr. Lazcano assessment VTE Prophylaxis: Sub-Q Heparin (Unfractionated) Resuscitation Status: CPR: Attempt Resuscitation Attending Statement The patient was seen and examined together with Dr. Greenberg on January 30 and I agree with the history, exam findings, and plan as outlined in the note above. I did participate in all aspects of the services provided today, including documentation and the plan of care. The patient will be continued on IV antibiotics for the next 24 hours as well as pain control with a conversion to oral pain medications if able. Emanuel Greenberg DO Jan 30, 2017 15:44 Lamberto Contreras MD Jan 31, 2017 07:29
--- NOTE | 2017-01-30 16:13 | PCM.PNPOD ---
Subjective Date of Service: Jan 30, 2017 Date of Service: Jan 30, 2017 Visit Information: Reason for Visit Afib With Rvr Surgery/Surgery Date Post-Op Day # Date of Admission: Jan 28, 2017 at 19:14 Hospital Day # Subjective: 72-year-old male evaluated resting comfortably in bed. Patient states that he feels a bit better today and only has mild discomfort in his foot however he is concerned that his dressing changes going to be uncomfortable and is requesting pain medication. Patient denies any new issues overnight no recent history of fevers chills nausea or vomiting. Postop General: No Complaints Gastrointestinal: Good Appetite Pain Management: PO Objective Vital Sign - Last Date Time Temp Pulse Resp B/P Pulse Ox O2 Delivery O2 Flow Rate FiO2 01/30/17 12:01 36.7 73 23 142/65 96 Room Air Intake and Output 01/29/17 01/29/17 01/30/17 Cumulative From/Thru 15:00 23:00 07:00 01/28/17 15:14 - 01/30/17 06:14 Intake Total 233 ml 400 ml 2053 ml Output Total 860 ml 750 ml 1610 ml Balance -627 ml -350 ml 443 ml Intake Oral 233 ml 400 ml 633 ml IV Total 1420 ml Output Urine Total 860 ml 750 ml 1610 ml Result Diagram: 01/30/17 0345 01/30/17 0345 Lab Test 01/28/17 15:30 01/28/17 16:00 01/28/17 21:05 01/28/17 21:08 Hold Purple Top Tube Received (Received) Hold Blue Top Tube Received (Received) Hold [place] Top Tube Received (Received) Hold Rodgers Top Tube Received (Received) Erythrocyte Sedimentation Rate 20mm/hr (0-30) Troponin T < 0.010ug/L (0.0-0.011) C-Reactive Protein 2.9mg/dL (0.0-0.5) Triglycerides Level 192mg/dL (0-149) Cholesterol Level 173mg/dL (100-199) LDL Cholesterol, Calculated 99.600mg/dL (0-99) VLDL Cholesterol 38.400mg/dL HDL Cholesterol 35mg/dL (>39) Cholesterol/HDL Ratio 4.94 (0.0-4.4) Procalcitonin 0.04ng/mL (0.00-0.08) Hemoglobin A1c 9.5% (4.8-5.6) Hold Urine Received (Received) Test 01/29/17 12:00 01/30/17 03:45 Lactic Acid Level 1.2mmol/L (0.4-2.0) White Blood Count 9.0th/mm3 (3.8-10.1) Red Blood Count 4.28mil/mm3 (4.40-5.80) Hemoglobin 13.2g/dL (13.8-17.2) Hematocrit 38.5% (41.0-50.0) Mean Corpuscular Volume 90.0fL (81-100) Mean Corpuscular Hemoglobin 30.8pg (27.0-35.0) Mean Corpuscular Hemoglobin Concent 34.3% (32.0-37.0) Red Cell Distribution Width 12.2% (12.3-15.4) Platelet Count 144bil/L (150-400) Neutrophils (%) (Auto) 71.9% (40-74) Lymphocytes (%) (Auto) 14.2% (14-46) Monocytes (%) (Auto) 10.6% (4-12) Eosinophils (%) (Auto) 2.7% (0-5) Basophils (%) (Auto) 0.2% (0-3) Sodium Level 136mEq/L (134-144) Potassium Level 4.0mEq/L (3.5-5.2) Chloride Level 100mEq/L (97-108) Carbon Dioxide Level 23mmol/L (18-29) Blood Urea Nitrogen 14mg/dL (8-27) Creatinine 0.74mg/dL (0.76-1.27) Estimat Glomerular Filtration Rate 110mL/min (>59) Glucose Level 234mg/dL (60-99) Calcium Level 8.6mg/dL (8.5-10.1) Total Bilirubin 0.7mg/dL (0.0-1.2) Aspartate Amino Transf (AST/SGOT) 12U/L (0-50) Alanine Aminotransferase (ALT/SGPT) 9U/L (0-44) Alkaline Phosphatase 84U/L (25-160) Total Protein 5.8g/dL (6.4-8.4) Albumin 3.3g/dL (3.4-5.0) Exam General: Alert, Oriented X3, Cooperative, No Acute Distress Lower Extremities: Right: Edema localized Extremity warm Lower Extremity Pulses: Palpable: Right Dorsalis Pedis Right Posterior Tibal Podiatry WOUND : Wound Location/Description Right plantar foot wound with moderate surrounding erythema decreased in intensity and overall area from previous evaluation. There is minimal purulent drainage emanating from the medial longitudinal arch when compressed mild serosanguineous drainage is present. No malodor. No signs of fluctuance or additional abscess Incision General Appearence: Erythmia (decreased and overall area compared to previous lines of demarcation and of minimal intensity) Assessment & Plan Impression Improving abscess and cellulitis of the right plantar foot Problems: Plan MRI performed today shows no additional abscess of the right forefoot however the plantar space is moderately distorted due to the presence of packing gauze. Patient appears to be improving today we will continue with daily wound flush and wound packing. The dressing was changed today with 1/4 inch iodoform packing gauze dry sterile gauze Kerlix and a minimally compressive Shay bandage. We will continue IV antibiotics at this time until wound cultures returned allowing us to choose an appropriate outpatient course which will likely consist of 2-4 weeks of oral antibiotic therapy. Podiatry will continue to follow daily this patient is to remain strictly nonweightbearing to his right foot VTE Prophylaxis: Sub-Q Heparin (Unfractionated) Leon Lazcano DPM Jan 30, 2017 16:13
--- NOTE | 2017-01-30 18:37 | NUR ---
Pain Pt reported pain to be very sharp and intermittent. Pt reported that pain completely resolves in between. Pt given PRN morphine during podiatry's dressing change this am. Pt reported pain to be otherwise tolerable throughout shift due to its intermittent nature.
[2017-01-30] MEDS: Insulin GLARgine 100 Unit/mL Syringe SUBQ SCH (22:04)
[2017-01-31] MEDS: Nafcillin Inj 2,000 MG in Dextrose 5% Minibag Plus 100 ML IV SCH ×4 (02:36→20:45)
[2017-01-31 03:58] VITALS: BP 120/56; PULSE 89; RESP 18; O2SAT 94
[2017-01-31 04:13] LABS: BASOPHILS % (AUTO) 0.3 % (0-3); EOSINOPHILS % (AUTO) 3.8 % (0-5); Mean Corpuscular Hemoglobin 31.2 pg (27.0-35.0); NEUTROPHILS % (AUTO) 68.4 % (40-74); Platelet Count 157 bil/L (150-400)
--- NOTE | 2017-01-31 07:27 | NUR ---
Tele Pt in Afib to SR to Afib again. Rate mostly 80s-100s while in Afib, highest seen was 120s w/ activity. Pt denied symptoms, MD aware.
[2017-01-31 08:05] VITALS: BP 106/61; PULSE 89; RESP 16; O2SAT 94
[2017-01-31] MEDS: Diltiazem CD 180 mg ER24 Capsule PO SCH (08:10)
[2017-01-31] MEDS: Dabigatran 150 mg Capsule PO SCH ×2 (08:10→20:49)
[2017-01-31] MEDS: Insulin LISPRO 300 Unit/3 mL Inj SUBQ SCH ×4 (08:28→20:52)
[2017-01-31 10:06] VITALS: PULSE 78
--- NOTE | 2017-01-31 10:56 | PCM.DIMED ---
Discharge Instructions Date of Service Jan 31, 2017 Dates of Hospitalization Jan 28, 2017 at 19:14 Discharge Diagnosis Discharge Diagnosis Cellulitis of the right foot New Atrial fibrillation Medication Instructions Additional med instructions New medications: Ciprofloxacin 750 mg taken orally twice daily Dabigatran 150mg taken orally twice daily Diltiazem XR 180 mg taken daily All of these medications were sent to [facility] in [place]. If you would like a printed copy please ask prior to leaving the hospital. Patient Instructions Patient Instructions You were admitted for cellulitis in her right foot. Dr. Lazcano was able to evaluate and debride the wound. MRI of your foot was obtained and did not show infection in the bone. You are being sent home with oral antibiotics to complete a 10 day course (you will need to take 7 days of antibiotics at home). While in the hospital you were diagnosed with atrial fibrillation, which is an abnormal heart rhythm. There are many people who have atrial fibrillation and the goals of care include controlling your heart rate with diltiazem, and thickening your blood with Pradaxa. We will send you home with these medications and asked that he follow-up with Dr. aLw for further evaluation. Your A1c was 9.5. Please also discuss this with your primary care doctor. Follow-up Provider: Rajiv Law MD Follow-up with PCP in: 1 week Provider: Leon Lazcano DPM Follow-up in: Other (as specified by him) Emanuel Greenberg DO Jan 31, 2017 10:56
[2017-01-31] MEDS ORDERED: CIPR750T4 PO (10:58)
[2017-01-31] MEDS ORDERED: DABI150C PO (10:58)
[2017-01-31] MEDS ORDERED: DILT180C66 PO (10:58)
[2017-01-31 11:56] VITALS: BP 133/63; PULSE 75; RESP 18; O2SAT 93
[2017-01-31 16:33] VITALS: BP 130/68; PULSE 74; RESP 16; O2SAT 95
--- NOTE | 2017-01-31 17:41 | NUR ---
Social Work: Readiness for Discharge/Multidisciplinary Rounds D: Pt discussed in multidisciplinary rounds. Pt will likely be discharged later tonight after input from podiatry. PROPERTY COORDINATOR met with the patient and his at bedside to confirm discharge plan. They agree with plan to go home and the states that they have acquired a knee scooter from a friend. They have this in their possession ready for the patient's use. No other discharge needs identified. A: Pt who is I at baseline and will be non-weightbearing on his right foot. P: Pt to discharge home via POV and no further sw needs once deems pt is medically stable; PROPERTY COORDINATOR to continue to follow. KENNY Phelan
--- NOTE | 2017-01-31 18:37 | NUR ---
Podiatry Podiatry saw Pt this am and plan to explore right foot wound for possible foreign object later this evening. Pt premedicated with 2mg IV morphine prior to podiatry's arrival. Per classifier operator, small metal chunk of wire removed from Pt's foot and foot X-ray ordered to confirm that there were no other foreign objects in the Pt's foot.
[2017-01-31 20:38] VITALS: BP 124/60; PULSE 70; RESP 18; O2SAT 94
[2017-01-31] MEDS: Insulin GLARgine 100 Unit/mL Syringe SUBQ SCH (20:52)
[2017-02-01 00:37] VITALS: BP 118/55; PULSE 72; RESP 18; O2SAT 94
[2017-02-01] MEDS: Nafcillin Inj 2,000 MG in Dextrose 5% Minibag Plus 100 ML IV SCH ×2 (03:02→07:59)
[2017-02-01 03:49] VITALS: BP 132/65; PULSE 67; RESP 14; O2SAT 95
[2017-02-01 06:00] VITALS: PULSE 72
--- NOTE | 2017-02-01 07:27 | NUR ---
Pain/tele Pt c/o 10 right foot pain and given PRN morphine w/ no further complaints. Pt verbalized understanding to voice pain so as to maintain pain control. Tele SR overnight.
[2017-02-01] MEDS: Insulin LISPRO 300 Unit/3 mL Inj SUBQ SCH ×2 (07:48→12:39)
[2017-02-01 07:56] VITALS: BP 136/70; PULSE 67; RESP 14; O2SAT 96
[2017-02-01] MEDS: Diltiazem CD 180 mg ER24 Capsule PO SCH (07:59)
[2017-02-01] MEDS: Dabigatran 150 mg Capsule PO SCH (07:59)
--- NOTE | 2017-02-01 08:00 | PCM.PNPOD ---
Subjective Date of Service: Jan 31, 2017 Date of Service: Jan 31, 2017 Visit Information: Reason for Visit Afib With Rvr Surgery/Surgery Date Post-Op Day # Date of Admission: Jan 28, 2017 at 19:14 Hospital Day # Subjective: 72-year-old diabetic male evaluated with abscess of the right plantar medial arch resting comfortably in bed in no acute distress. No new issues or complaints. Patient states that he is eager to be discharged to home when stable. Postop General: No Complaints Gastrointestinal: Good Appetite Pain Management: PO Objective Vital Sign - Last Date Time Temp Pulse Resp B/P Pulse Ox O2 Delivery O2 Flow Rate FiO2 02/01/17 06:00 72 02/01/17 03:49 36.9 14 132/65 95 Room Air Intake and Output 01/31/17 01/31/17 02/01/17 Cumulative From/Thru 15:00 23:00 07:00 01/28/17 15:14 - 02/01/17 06:27 Intake Total 945 ml 850 ml 1549 ml 6729 ml Output Total 1300 ml 975 ml 1100 ml 6335 ml Balance -355 ml -125 ml 449 ml 394 ml Intake Oral 600 ml 600 ml 1250 ml 4155 ml IV Total 345 ml 250 ml 299 ml 2574 ml Output Urine Total 1300 ml 975 ml 1100 ml 6335 ml # Voids 1 1 # Bowel Movements 2 1 3 Result Diagram: 01/31/17 0405 01/31/17 0405 Lab Test 01/28/17 15:30 01/28/17 16:00 01/28/17 21:05 01/28/17 21:08 Hold Purple Top Tube Received (Received) Hold Blue Top Tube Received (Received) Hold [place] Top Tube Received (Received) Hold Rodgers Top Tube Received (Received) Erythrocyte Sedimentation Rate 20mm/hr (0-30) Troponin T < 0.010ug/L (0.0-0.011) C-Reactive Protein 2.9mg/dL (0.0-0.5) Triglycerides Level 192mg/dL (0-149) Cholesterol Level 173mg/dL (100-199) LDL Cholesterol, Calculated 99.600mg/dL (0-99) VLDL Cholesterol 38.400mg/dL HDL Cholesterol 35mg/dL (>39) Cholesterol/HDL Ratio 4.94 (0.0-4.4) Hemoglobin A1c 9.5% (4.8-5.6) Hold Urine Received (Received) Test 01/29/17 12:00 01/31/17 04:05 Lactic Acid Level 1.2mmol/L (0.4-2.0) White Blood Count 8.6th/mm3 (3.8-10.1) Red Blood Count 4.39mil/mm3 (4.40-5.80) Hemoglobin 13.7g/dL (13.8-17.2) Hematocrit 39.5% (41.0-50.0) Mean Corpuscular Volume 90.0fL (81-100) Mean Corpuscular Hemoglobin 31.2pg (27.0-35.0) Mean Corpuscular Hemoglobin Concent 34.7% (32.0-37.0) Red Cell Distribution Width 12.3% (12.3-15.4) Platelet Count 157bil/L (150-400) Neutrophils (%) (Auto) 68.4% (40-74) Lymphocytes (%) (Auto) 17.2% (14-46) Monocytes (%) (Auto) 10.0% (4-12) Eosinophils (%) (Auto) 3.8% (0-5) Basophils (%) (Auto) 0.3% (0-3) Sodium Level 139mEq/L (134-144) Potassium Level 4.2mEq/L (3.5-5.2) Chloride Level 101mEq/L (97-108) Carbon Dioxide Level 23mmol/L (18-29) Blood Urea Nitrogen 10mg/dL (8-27) Creatinine 0.67mg/dL (0.76-1.27) Estimat Glomerular Filtration Rate 124mL/min (>59) Glucose Level 179mg/dL (60-99) Calcium Level 8.5mg/dL (8.5-10.1) Total Bilirubin 1.1mg/dL (0.0-1.2) Aspartate Amino Transf (AST/SGOT) 10U/L (0-50) Alanine Aminotransferase (ALT/SGPT) 9U/L (0-44) Alkaline Phosphatase 68U/L (25-160) Total Protein 5.8g/dL (6.4-8.4) Albumin 3.5g/dL (3.4-5.0) Procalcitonin 0.05ng/mL (0.00-0.08) Exam General: Alert, Oriented X3, Cooperative, No Acute Distress Lower Extremities: Right: Edema localized Extremity warm Lower Extremity Pulses: Palpable: Right Dorsalis Pedis Right Posterior Tibal Podiatry WOUND : Wound Location/Description Right plantar medial foot incision and drainage site measures 3.5 cm x 0.5 cm x 2 cm in depth. A centrally orientated foreign body is clearly visible today through the wound, upon excision of the foreign body is determined to be a small needle or metal wire measuring approximately 1 cm in length, surrounding tissue is granular with a minimal amount of fibrotic slough no purulent drainage is noted today there is mild serosanguineous drainage minimal shadi- ulcerative maceration tissue is present there is no malodor and no sign of continued infection. Assessment & Plan Impression Stable right plantar medial arch wound status post bedside incision and drainage of abscess and cellulitis with foreign body of the right foot Problems: Plan Dressing removed today, centrally noted foreign body was removed with a pair of forceps atraumatically following local wound block consisting of 5 mL 2% lidocaine plain. The wound was copiously flushed with large amounts of normal saline 1/4 inch iodoform packing gauze was introduced into the wound site and the wound was dressed with Betadine soaked gauze Kerlix and a minimally compressive Shay bandage. Patient is stable for discharge to home today. Dressing is to remain intact until follow-up with podiatry. If complications occur he is to contact the office over the weekend Complete ten-day course of outpatient oral antibiotic therapy, ciprofloxacin. Patient is to follow up with podiatry within 5 days of discharge VTE Prophylaxis: Sub-Q Heparin (Unfractionated) Leon Lazcano DPM Feb 01, 2017 08:00
[2017-02-01 10:18] VITALS: PULSE 68
--- NOTE | 2017-02-01 10:49 | DRSVH ---
PROCEDURE: X-RAY RIGHT FOOT COMPLETE, MINIMUM THREE VIEWS ([id number]) INDICATIONS: foreign body TECHNIQUE: 3 views of the foot were acquired. COMPARISON: [facility], CR, TOE(S) MIN 2VW, 03/06/2012, 9:55. FINDINGS: Bones: No fractures or dislocations. No suspicious bony lesions. Multiple hammertoe deformities ar e present limiting evaluation of the first through fifth digits. Calcaneal spurring. Soft tissues: No tibiotalar joint effusion. Achilles tendon appears normal. IMPRESSION: 1. Multiple hammertoe deformities present limiting evaluation of the first through fifth digits. 2. No radiopaque soft tissue foreign body seen. Dictated by: Christopher Garcias [facility] Interpreted: Casimiro Horne MD on 02/01/2017 at 8:54 Approved by: Casimiro Horne M.D. on 02/01/2017 at 10:47
--- NOTE | 2017-02-01 11:50 | NUR ---
Social Work: Discharge/Multidisciplinary Rounds D: Pt discussed in multidisciplinary rounds. Pt is likely discharging home today pending input from podiatry. Provider has requested an insurance verification for a discharging medication. Prescription provided Dabigratram 150mg BID send to the [facility]. The pt's out of pocket expense is his $20 co-pay. TARGET TRIMMER informed resident provider of this. Pt is being discharged home. No concerns about pt's capacity for self-care. TARGET TRIMMER met with the patient at bedside. He confirms that his has obtained the knee scooter. He agrees with the d/c plan to go home. No concerns or barriers for d/c identified. A: Pt who is I at baseline but will require a knee-scooter for non-weightbearing status. P: Pt to discharge home via POV and no further sw needs. KENNY Phelan
[2017-02-01] MEDS ORDERED: HYDR-4003 PO (12:34)
--- NOTE | 2017-02-01 14:21 | NUR ---
Discharge Pt dc'd in WC with family and FILTERATION OPERATOR at 1335. Stable and w/o complaints. All discharge paperwork reviewed and pt verbalized understanding of all instructions. All belongings with pt.
--- NOTE | 2017-02-01 18:15 | PCM.DC.MED ---
Discharge Summary Date of Service Feb 01, 2017 Dates of Hospitalization Date of Hospital Admission Jan 28, 2017 at 19:14 Date of Discharge: Feb 01, 2017 Providers: Admitting Physician: Dahlia Peraza DO Primary Care Physician: Rajiv Law MD Attending Physician: Carroll Phelps MD Diagnosis at Time of Discharge Diagnosis at Time of Discharge Cellulitis of the right foot New Atrial fibrillation Procedures XRay, CTs & MRIs Chest x-ray Minimal subsegmental atelectasis at the left base. Otherwise no abnormality is seen in the semiupright portable chest Dictated by: Casimiro Horne M.D. on 01/28/2017 at 18:37 Brief History Mr. Ramses Guzman is a very pleasant 72 year old gentleman with past medical history of hypertension, poorly controlled insulin using diabetes, who presents to ED complaining of worsening swelling at the bottom of his right foot post an abscess drainage at [facility] urgent care on Sunday. Culture was taken and placed on Keflex since then. He first noticed the surrounding redness on the medial aspect of his foot and upon closer examination then noticed the blister. He states that it started like a pimple with a white head and a black center and a 7cm surrounding area of erythema. He states that it is only painful directly over the incision. He reports 5/10 non-radiating sharp pain in his right foot only when he walks. In the ED the patient was noted to be in afib w RvR. He denies headache, nausea, vomiting, syncope, fever, chills, diaphoresis, chest pain, palpitations, abdominal pain, constipation, diarrhea, hematuria, and hematochezia. Of note: Patient drinks 6 cups of coffee daily. Hospital Course 72 year old gentleman with past medical history of hypertension, poorly controlled insulin using diabetes, and new onset Afib w/ RvR who is currently being treated for MSSA diabetic foot infection. He presented emergency department due to increasing cellulitis in the right foot concurrent with this MSSA infection. Patient underwent debridement by on the first and second day of admission. Patient then underwent MRI to rule out osteomyelitis. On the MRI report it was noted that there is a metallic object in the patient' s foot. Podiatry's PA assess the patient and found a 1 inch long piece of metal wedged into the patient's foot. This was removed yesterday. Patient underwent x-ray of the foot today without additional findings. Patient was treated with nafcillin IV while in the hospital was discharged on ciprofloxacin for 7 days. He was instructed and has follow-up with podiatry and wound care. Upon admission the patient was also noted to be in atrial fibrillation and was treated with a diltiazem drip initially. After control the patient's rate he was started on Cardizem CD 180 mg by mouth daily. He was also started on Pradaxa for anticoagulation. The patient continued to flip in and out of atrial fibrillation, but remained asymptomatic the entire time. He is instructed to follow-up with his primary care doctor for continued treatment. Bullet points of his stay are located below. MSSA diabetic foot infection, present on admission. Active. - MSSA cx positive in outpatient records. - Vancomycin received in the ED and D/C'd on floor. - Continue nafcillin day 3 - Procalcitonin negative, C-reactive protein 2.9 - Dr. Lazcano evaluated and debrided - MRI negative for osteomyelitis, positive for metallic foreign body - Blood cultures no growth - Discharged on ciprofloxacin for additional 7 days Afib with RvR, present on admission. Active - Afib converted to sinus shortly arriving to the floor. - New diagnosis. Patient drinks 6 cups of coffee daily. - Diltiazem ggt converted to 180mg PO daily - Tele on. - [id number] score of 4 - Anticoag with Pradaxa Insulin using diabetes, present on admission. Active. - Continue home regimen. Patient has Lantus on med rec, but he says he uses something else... - Holding home oral medications - Metformin 1G BIDWM. - A1c 9.5 - Lantus 15 units at bedtime - Medium correctional Hypertension, - Continue home lisinopril 2.5 daily. Hyperlipidemia - Continue home simvastatin 5mg daily. Disposition: Patient was discharged in improved condition with understanding of his condition and follow-up plan, as well as when to return to the emergency department. Exam Vital Signs (Last) Date Time Temp Pulse Resp B/P Pulse Ox O2 Delivery O2 Flow Rate FiO2 02/01/17 10:18 68 02/01/17 07:56 14 136/70 96 Room Air 02/01/17 03:49 36.9 Exam General: Pleasant appearing age-appropriate male in no acute distress Cardio: Regular rate and rhythm Respiratory: CTA bilaterally, no wheezes, no crackles Abdomen: Soft, positive bowel sounds Extremities: No edema; sensation decrease in right foot; right foot is bandaged and is dry Psych: Appropriate mood and affect Neuro: CN II through XII grossly intact, sensation intact throughout Skin: No rash Test 01/28/17 15:30 01/28/17 16:00 01/28/17 21:05 01/28/17 21:08 Hold Purple Top Tube Received (Received) Hold Blue Top Tube Received (Received) Hold [place] Top Tube Received (Received) Hold Rodgers Top Tube Received (Received) Erythrocyte Sedimentation Rate 20mm/hr (0-30) Troponin T < 0.010ug/L (0.0-0.011) C-Reactive Protein 2.9mg/dL (0.0-0.5) Triglycerides Level 192mg/dL (0-149) Cholesterol Level 173mg/dL (100-199) LDL Cholesterol, Calculated 99.600mg/dL (0-99) VLDL Cholesterol 38.400mg/dL HDL Cholesterol 35mg/dL (>39) Cholesterol/HDL Ratio 4.94 (0.0-4.4) Hemoglobin A1c 9.5% (4.8-5.6) Hold Urine Received (Received) Test 01/29/17 12:00 01/31/17 04:05 Lactic Acid Level 1.2mmol/L (0.4-2.0) White Blood Count 8.6th/mm3 (3.8-10.1) Red Blood Count 4.39mil/mm3 (4.40-5.80) Hemoglobin 13.7g/dL (13.8-17.2) Hematocrit 39.5% (41.0-50.0) Mean Corpuscular Volume 90.0fL (81-100) Mean Corpuscular Hemoglobin 31.2pg (27.0-35.0) Mean Corpuscular Hemoglobin Concent 34.7% (32.0-37.0) Red Cell Distribution Width 12.3% (12.3-15.4) Platelet Count 157bil/L (150-400) Neutrophils (%) (Auto) 68.4% (40-74) Lymphocytes (%) (Auto) 17.2% (14-46) Monocytes (%) (Auto) 10.0% (4-12) Eosinophils (%) (Auto) 3.8% (0-5) Basophils (%) (Auto) 0.3% (0-3) Sodium Level 139mEq/L (134-144) Potassium Level 4.2mEq/L (3.5-5.2) Chloride Level 101mEq/L (97-108) Carbon Dioxide Level 23mmol/L (18-29) Blood Urea Nitrogen 10mg/dL (8-27) Creatinine 0.67mg/dL (0.76-1.27) Estimat Glomerular Filtration Rate 124mL/min (>59) Glucose Level 179mg/dL (60-99) Calcium Level 8.5mg/dL (8.5-10.1) Total Bilirubin 1.1mg/dL (0.0-1.2) Aspartate Amino Transf (AST/SGOT) 10U/L (0-50) Alanine Aminotransferase (ALT/SGPT) 9U/L (0-44) Alkaline Phosphatase 68U/L (25-160) Total Protein 5.8g/dL (6.4-8.4) Albumin 3.5g/dL (3.4-5.0) Procalcitonin 0.05ng/mL (0.00-0.08) Discharge Medications Discharge Medications Aspirin (Aspirin) 325 Mg Tablet.dr 325 MG PO DAILY (Reported) Ciprofloxacin (Ciprofloxacin) 750 Mg Tablet 750 MG PO BID Prescribed by: EMANUEL GREENBERG DO Dabigatran Etexilate Mesylate (Pradaxa) 150 Mg Capsule 150 MG PO BID Prescribed by: EMANUEL GREENBERG DO Diltiazem ER (Cardizem CD) 180 Mg Cap.er.24h 180 MG PO DAILY Prescribed by: EMANUEL GREENBERG DO Fish Oil/Vit E/Fat No.5/Hc137 (Flax, Fish & Borage Oil Sofgel) 1 Each Capsule 1 EACH PO DAILY (Reported) Hydrocodone-Acetaminophen 5-325 mg (Hydrocodone-Acetaminophen 5-325 mg) 1 Each Tablet 1 TABLET PO QID Prescribed by: EMANUEL GREENBERG DO Insulin Glargine (Lantus U100 Solostar Insulin Pen) 100 Unit/1 Ml Insuln.pen 15 UNIT SUBQ QPM-INSULIN (Reported) Lisinopril (Lisinopril) 2.5 Mg Tablet 2.5 MG PO DAILY (Reported) Metformin (Glucophage) 1,000 Mg Tablet 1,000 MG PO BIDWM (Reported) Simvastatin (Simvastatin) 5 Mg Tablet 5 MG PO HS (Reported) Additional med instructions New medications: Ciprofloxacin 750 mg taken orally twice daily Dabigatran 150mg taken orally twice daily Diltiazem XR 180 mg taken daily All of these medications were sent to [facility] in [place]. If you would like a printed copy please ask prior to leaving the hospital. Followup Plan Patient Instructions You were admitted for cellulitis in her right foot. Dr. Lazcano was able to evaluate and debride the wound. MRI of your foot was obtained and did not show infection in the bone. You are being sent home with oral antibiotics to complete a 10 day course (you will need to take 7 days of antibiotics at home). While in the hospital you were diagnosed with atrial fibrillation, which is an abnormal heart rhythm. There are many people who have atrial fibrillation and the goals of care include controlling your heart rate with diltiazem, and thickening your blood with Pradaxa. We will send you home with these medications and asked that he follow-up with Dr. Law for further evaluation. Your A1c was 9.5. Please also discuss this with your primary care doctor. Follow-up Provider: Rajiv Law MD Follow-up with PCP in: 1 week Provider: Leon Lazcano DPM Follow-up in: Other (as specified by him) Time spent 35 minutes Attending Statement I interviewed and examined the patient prior to discharge today. I agree with the assessment and plan as stated above. Emanuel Greenberg DO Feb 01, 2017 18:15 Carroll Phelps MD Feb 02, 2017 07:08
== END 2017-02-01 13:45 | disposition home or self-care (01) | DRG 638 ==
LOC: SED 15:11 → PCC 19:14
PROVIDERS: ADMIT Internal Medicine; ATTEND Internal Medicine
PROC: 0H9MXZZ Drainage of Right Foot Skin, External Approach (ICD-10-PCS; principal; 2017-01-29)
DX: E11.628 Type 2 diabetes mellitus with other skin complications (principal); L03.115 Cellulitis of right lower limb; L02.611 Cutaneous abscess of right foot; E11.65 Type 2 diabetes mellitus with hyperglycemia; Z79.4 Long term (current) use of insulin; Z79.84 Long term (current) use of oral hypoglycemic drugs; I48.91 Unspecified atrial fibrillation; I10 Essential (primary) hypertension; E78.5 Hyperlipidemia, unspecified; B95.61 Methicillin susceptible Staphylococcus aureus infection as the cause of diseases classified elsewhere